=== PATIENT | male | born 1995 | race Caucasian/White ===

== ENCOUNTER 2017-02-24 16:16 | Emergency (ER) | payer OTHER ==
[~2017-02-24] VITALS: Ht 177.8 cm; Wt 77.3 kg
[2017-02-24 16:21] VITALS: BP 154/82; TEMP 97.5
[2017-02-24 17:19] VITALS: PULSE 72
== END 2017-02-24 17:21 | disposition home or self-care (01) ==
LOC: COL.ER 16:16
DX: S90.02XA Contusion of left ankle, initial encounter (principal); W22.8XXA Striking against or struck by other objects, initial encounter; Y92.89 Other specified places as the place of occurrence of the external cause

== ENCOUNTER 2017-03-08 08:06 | Outpatient (RCR) | payer OTHER | END 2017-06-06 | LOC: WSOH | DX: S80.12XA Contusion of left lower leg, initial encounter (principal); W20.8XXA Other cause of strike by thrown, projected or falling object, initial encounter; Y99.0 Civilian activity done for income or pay ==